=== PATIENT | male | born 1940 | race African-American/Black ===

== ENCOUNTER → 2017-11-15 | Outpatient (CLI) | payer MEDICARE | END | disposition home or self-care (01) | LOC: KCIC MRI 13:32 | DX: R41.3 Other amnesia (principal) | CPT/HCPCS: 70450 ==

== ENCOUNTER 2020-12-06 03:25 | Inpatient (IN) | payer MEDICARE ==
[2020-12-06] VITALS (7 sets, daily range): BP systolic 91–132; BP diastolic 42–72
[~2020-12-06] VITALS: Ht 180.3 cm; Wt 67.9 kg
--- NOTE | 2020-12-06 03:49 | PHYS DOC ---
General Adult EDM: Chief Complaint: ALTERED MENTAL STATUS HPI: HPI: Patient is a 79 year old male with a past medical history of dementia presents for evaluation of altered mental status. Prior to arrival patients found patient to be unresponsive. could not get patient to respond to his name or physical stimuli. On arrival patient with decreased LOC. GCS 11 E(3) V(2) M(6) Patient was protecting his airway. Approximately 30 minutes after arrival patients mental status returned to baseline GCS 15 Patient had no complaints. Denied headache, chest pain, shortness of breath, and abdominal pain. Review of Systems: Review of Systems: Unable to obtain due to medical condition Heart Score: C/O Chest Pain: N/A Risk Factors: Risk Factors: DM, Current or recent (<one month) smoker, HTN, HLP, family history of CAD, obesity. Risk Scores: Score 0 - 3: 2.5% MACE over next 6 weeks - Discharge Home Score 4 - 6: 20.3% MACE over next 6 weeks - Admit for Clinical Observation Score 7 - 10: 72.7% MACE over next 6 weeks - Early Invasive Strategies Physical Exam: PE: General: decreased LOC Skin: warm, dry and intact. HENT: bilateral external ears normal, oropharynx moist, nose normal. Head:: Normocephalic, atraumatic. Neck: Trachea midline. Eyes: No drainage CARDIOVASCULAR: Regular rate and rhythm RESPIRATORY: No respiratory distress Back: Full range of motion. Skin: Warm, dry, no erythema, no rash. GASTROINTESTINAL: Abdomen soft without rebound or guarding. NEUROLOGICAL: Alert No neurological deficits observed Psychiatric: Cooperative. EKG: EKG: Performed at 0333 Rate [address] elevation No ST depression No acute NE [] Radiology/Procedures: Radiology/Procedures: [] Impression: CT head without contrast: Reason for examination: Altered mental status. Comparison is made to previous study dated 11/15/2017. Helical images were obtained through the brain with no contrast administered. Reconstruction was performed in sagittal and coronal planes. Exposure: One or more of the following individualized dose reduction techniques were utilized for this examination: 1. Automated exposure control 2. Adjustment of the mA and/or kV according to patient size 3. Use of iterative reconstruction technique. Ventricular systems are symmetric and not dilated. No midline shift is seen. There is no evidence of intracranial hemorrhage, infarct, mass or edema. No abnormalities of seen at the orbits. The paranasal sinuses and mastoid air cells are clear. No acute abnormality seen in the skull. IMPRESSION: No acute intracranial abnormality evident. Course & Med Decision Making: Course & Med Decision Making Pertinent Labs and Imaging studies reviewed. (See chart for details) []Patient worked up. Labs and CT without acute abnormalities. Patient back to baseline mental status. Dragon Disclaimer: Dragon Disclaimer: This electronic medical record was generated, in whole or in part, using a voice recognition dictation system. Departure Departure Impression: Primary Impression: Altered mental status Disposition: 09 ADMITTED INPATIENT Referrals: NO PCP (PCP) CODY CLARKE DO Dec 06, 2020 03:49
--- NOTE | 2020-12-06 04:13 | EKG ---
[facility] [address] [place] [address] Test Date: 2020-12-06 Test Time: 03:33:34 Pat Name: ANTONIA MATOS Department: Room: Gender: M Surface Room [employer]ician: : [id number] Requested By: CODY CLARKE Order Number: [id number] Reading MD: Measurements Intervals [place] Rate: 102 P: -61 GA: 162 QRS: 76 QRSD: 114 T: -50 QT: 354 QTc: 466 Interpretive Statements SINUS TACHYCARDIA ST & T ABNORMALITY, CONSIDER INFERIOR ISCHEMIA OR LEFT VENTRICULAR STRAIN ABNORMAL ECG RI6.02 No previous ECG available for comparison
[2020-12-06 04:19] LABS: BASO % 1 % (0-3); EOS # 0.1 x10^3/uL (0.0-0.7); EOS % 2 % (0-3); HEMATOCRIT 42.7 % (39.0-53.0); HEMOGLOBIN 14.9 g/dL (13.0-17.5); LYMPH # 2.7 x10^3/uL (1.0-4.8); LYMPH % 33 % (24-48); MEAN CORPUSCULAR HEMOGLOBIN 32 pg (25-35); MEAN CORPUSCULAR HGB CONC 35 g/dL (31-37); MEAN CORPUSCULAR VOLUME 93 fL (79-100); MONO # 0.7 x10^3/uL (0.0-1.1); MONO % 9 % (0-9); NEUT # 4.7 x10^3/uL (1.8-7.7); NEUT % 57 % (31-73); PLATELET COUNT 119 x10^3/uL (140-400); RED CELL DISTRIBUTION WIDTH 13.3 % (11.5-14.5); WHITE BLOOD COUNT 8.2 x10^3/uL (4.0-11.0)
[2020-12-06 04:20] LABS: BILIRUBIN,URINE NEGATIVE (NEG); CLARITY,URINE CLEAR; COLOR,URINE YELLOW; NITRITE,URINE NEGATIVE (NEG); PROTEIN,URINE NEGATIVE (NEG-TRACE); UROBILINOGEN,URINE 0.2 mg/dL (0.2 mg/dL)
[2020-12-06 04:46] LABS: CALCIUM 9.7 mg/dL (8.5-10.1); CREATININE 1.1 mg/dL (0.7-1.3); GFR 78.1; POTASSIUM 4.4 mmol/L (3.5-5.1)
[2020-12-06 04:47] LABS: BACTERIA,URINE MODERATE /HPF (0-FEW)
[2020-12-06 04:52] LABS: ALBUMIN 4.6 g/dL (3.4-5.0); ALBUMIN/GLOBULIN RATIO 1.5 (1.0-1.7); TOTAL BILIRUBIN 1.5 mg/dL (0.2-1.0); TOTAL PROTEIN 7.7 g/dL (6.4-8.2)
--- NOTE | 2020-12-06 05:09 | RAD ---
CT head without contrast: Reason for examination: Altered mental status. Comparison is made to previous study dated 11/15/2017. Helical images were obtained through the brain with no contrast administered. Reconstruction was perf ormed in sagittal and coronal planes. Exposure: One or more of the following individualized dose reduction techniques were utilized for thi s examination: 1. Automated exposure control 2. Adjustment of the mA and/or kV according to patient size 3. Use of iterative reconstruction technique. Ventricular systems are symmetric and not dilated. No midline shift is seen. There is no evidence of intracranial hemorrhage, infarct, mass or edema. No abnormalities of seen at the orbits. The paranasa l sinuses and mastoid air cells are clear. No acute abnormality seen in the skull. IMPRESSION: No acute intracranial abnormality evident. Electronically signed by: Elvia Arora MD (12/06/2020 5:06 AM) [facility]
[2020-12-06] MEDS ORDERED: TAMS0.4C97 PO ×2 (06:08)
[2020-12-06] MEDS ORDERED: SIMV20TA18 PO (06:08)
[2020-12-06] MEDS ORDERED: MEXI150C PO (06:08)
[2020-12-06] MEDS ORDERED: DONE10TA7 PO (06:08)
[2020-12-06] MEDS ORDERED: LISI10TA16 PO (06:08)
[2020-12-06] MEDS ORDERED: ASPI-630 PO (06:08)
[2020-12-06] MEDS ORDERED: LATA2.5D2 OU (06:08)
[2020-12-06] MEDS ORDERED: MULT-690 PO (06:08)
[2020-12-06] MEDS ORDERED: CYAN-9 PO (06:08)
[2020-12-06] MEDS ORDERED: CARV25TA2 PO (06:08)
[2020-12-06] MEDS ORDERED: CETI10TA16 PO (06:08)
--- NOTE | 2020-12-06 07:34 | NUR ---
patient arrived to unit at approx 0650 accompanied by ED RN. patient has not complaints of pain. Resting comfortably on RA. states that patient is back to baseline neurologically. Bed in low locked position, call light in reach, reminded to call for assistance before ambulating, bed alarm set. Will continue to monitor.
[2020-12-06] MEDS ORDERED: CHOL10004 PO (10:05)
--- NOTE | 2020-12-06 10:56 | PDOC ---
Provider Note Date of Service: DATE: 12/06/20 TIME: 10:55 Provider Note Patient examined. Discussed with the patient and his . Clinically does not have UTI. Consult Dr. Poole for neurology evaluation and management. Continue cardiac monitoring. H&P will be dictated later. Justifications for Admission Other Justification JOSE LUIS HOLT MD Dec 06, 2020 10:56
[2020-12-06] MEDS: LISINOPRIL 10 MG TABLET PO SCH ×2 (11:00→21:00)
[2020-12-06] MEDS: CYANOCOBALAMIN (VITAMIN B-12) 1,000 MCG TABLET. PO SCH (11:19)
[2020-12-06] MEDS: MULTIVITAMIN with MINERAL TABLET. PO SCH (11:19)
[2020-12-06] MEDS: ASPIRIN CHEWABLE 81 MG TABLET. PO SCH (11:20)
[2020-12-06] MEDS: CHOLECALCIFEROL (VITAMIN D3) 1,000 UNIT TABLET PO SCH (11:20)
[2020-12-06] MEDS: CETIRIZINE HCL 10 MG TABLET. PO SCH (11:25)
--- NOTE | 2020-12-06 12:54 | NUR ---
Consults to Dr. Avery & Dr. Santos called.
[2020-12-06] MEDS: MEMANTINE 5 MG TABLET. PO SCH ×2 (13:30→21:00)
[2020-12-06] MEDS: CARVEDILOL 12.5 MG TABLET. PO SCH ×2 (13:31→17:00)
--- NOTE | 2020-12-06 13:36 | HP ---
ADMIT DATE: 12/06/2020 HISTORY OF PRESENT ILLNESS: This is a 79 years old male who has a history of dementia with behavioral disturbances and who is on Aricept and who is in the habit of walking and pacing for many hours at night, was talking to his and then subsequently went back to the chair last night around 1:00 a.m. and when went back to see him, he was not responsive. He was sitting in the chair, but did not respond to any verbal or physical stimuli. called the ambulance and the patient did not respond even to the medical staff. He was brought to the Emergency Room. In the Emergency Room, he remained unresponsive for about 30 minutes. Subsequently, the patient became responsive and went back to his baseline status. The patient is confused and unable to provide any information. He has severe dementia. He did not have any dizziness, seizures, palpitations, cough, congestion, dyspnea, cyanosis, any focal weakness per the patient's . In the Emergency Room, a CT scan of head did not show any acute intracranial abnormalities. Because of the change in mental status and possible syncope, the patient was admitted for further evaluation and management. SYSTEMS REVIEW: As noted in the history of present illness. The patient is unable to provide any information. The patient denies any abdominal pain, nausea, vomiting, cold, cough, congestion, fever, chills, any recent falls or head trauma. PAST MEDICAL HISTORY: The patient has a history of coronary artery disease with inferior posterior myocardial infarction, moderate atherosclerosis 50-60% stenosis in LAD and left circumflex. He had RCA with chronic total occlusion, status post PCI with LINSEY on 09/16/2003, left ventricular dysfunction due to ischemic cardiomyopathy, ejection fraction 35% with both systolic and diastolic heart failure. The patient had an ICD placement on 12/11/2004 and on 03/04/2015, there was an ICD generator change. History of frequent PVCs, hypertension, dyslipidemia, dementia with behavioral disturbances, vitamin D deficiency, severe lumbar spondylosis, right shoulder osteoarthritis, chronic osteoarthritis of hands, moderate mitral regurgitation with mild tricuspid regurgitation, cardiac arrhythmia, hyperlipidemia, glaucoma, degenerative joint disease of the right hip, carotid artery disease, left internal carotid stenosis less than 50%, history of cardiac pacemaker. The patient has AICD in the right chest. The patient has a history of B12 deficiency. FAMILY HISTORY: Brother had premature coronary artery disease. Father had diabetes mellitus type 2, renal failure, and glaucoma. Mother had coronary artery disease. Sister has asthma. SOCIAL HISTORY: No history of smoking, alcoholism, or drug abuse. The patient lives with his . MEDICATIONS: Carvedilol 25 mg p.o. twice daily, cetirizine 10 mg half tablet daily at bedtime, tamsulosin 0.4 mg daily, simvastatin 20 mg daily, lisinopril 20 mg daily, Namenda 5 mg twice daily, Aricept 10 mg 2 tablets daily in the evening, Flonase 2 sprays by intranasal route every day in each nostril, vitamin B12 5000 mcg sublingually once a day, mexiletine 150 mg every 8 hours with food, aspirin 81 mg p.o. daily, vitamin D3 once a day. ALLERGIES: None known any. PHYSICAL EXAMINATION: VITAL SIGNS: Temperature 98.1, pulse 59 per minute, respirations 16 per minute, blood pressure is 102/51 mmHg. On admission, temperature was 97.1, respirations normal, pulse was 78 per minute, blood pressure 141/93 mmHg. GENERAL: The patient is an elderly -[place] male who is alert, confused, more talkative this morning than usual and not in acute distress. He is unable to provide any significant information. SKIN: Warm and dry. There is no cyanosis. EYES: Pupils reacting to light. Conjunctivae pale. Sclerae white. HENT: Unremarkable. NECK: Supple. JVP normal. No thyromegaly. Trachea midline. LUNGS: Clear. CARDIOVASCULAR SYSTEM: S1, S2 regular. The patient also has an ICD placed in the right upper chest. ABDOMEN: Soft, nontender, no guarding, no rigidity. Bowel sounds present. EXTREMITIES: No edema, no cyanosis, no calf tenderness. CENTRAL NERVOUS SYSTEM: The patient is very confused. Moves all his extremities. No focal neurovascular deficit noted. He is back to his baseline status. LABORATORY AND DIAGNOSTIC DATA: Laboratory findings: WBC count 8.2, hemoglobin 14.9, platelet count is 119,000. Sodium 142, potassium 4.4, BUN 22, creatinine 1.1, glucose 108, calcium 9.7, total bilirubin 1.5, troponin less than 0.017, total protein 7.7, albumin 4.6. Urinalysis: Moderate bacteria, 5-10 wbc's, nitrite negative, blood negative. CT scan of the head did not show any acute intracranial changes. IMPRESSION: 1. Syncope. 2. Change in mental status. 3. Dementia with behavioral disturbances. 4. Hypertension. 5. Coronary artery disease with status post stent in the right coronary artery. 6. Severe lumbar spondylosis. 7. Right shoulder osteoarthritis. 8. Osteoarthritis of hands and right hip. 9. History of premature ventricular complexes. 10. Congestive heart failure with ejection fraction of 35%, both systolic and diastolic. 11. Carotid artery stenosis, less than 50% on the left side. 12. Hyperlipidemia. 13. Glaucoma. 14. Thrombocytopenia. 15. B12 deficiency. 16. History of inferior posterior myocardial infarction. PLAN: Consult Dr. Poole for neurology evaluation and management. Consult Dr. Avery for cardiology evaluation and management. Continue cardiac monitoring. Condition, treatment options extensively discussed with the patient and his . Clinically, the patient does not have urinary tract infection, he is not symptomatic but we will wait for the urine culture, I will not start him on any antibiotics. For details, please refer to the orders. Monitor for arrhythmia and seizures. RADHA/ORL DR: RADHA/nica TID: [id number]
[2020-12-06] MEDS: MEXILETINE 150 MG PO SCH ×2 (14:24→22:00)
[2020-12-06] MEDS: TAMSULOSIN 0.4 MG CAP.ER.24H. PO SCH (17:17)
[2020-12-06] MEDS: ALPRAZolam 0.25 MG TABLET PO PRN (17:17)
--- NOTE | 2020-12-06 20:37 | PDOC2 ---
CONSULT Date of Consult Date of Consult DATE: 12/06/20 TIME: 20:35 Reason for Consult Reason for Consult: AMS Identification/Chief Complaint Chief Complaint AMS History of Present Illness Reason for Visit: This patient is 79-year-old man with past medical history of multiple medical problems with history of dementia, episodes of agitation. Patient was not feeling well for the last [id number] days prior to presentation. Patient was having more confusion. Patient had a syncope episode. Patient had improvement in symptoms. Patient currently denies any complaint of headache nausea or vomiting chest pain shortness of breath. Patient denied any focal extremity weakness. Patient had a CT scan done brain did not show any evidence of acute intracranial etiology changes noted for chronic small vessel ischemic disease, atrophy noted Current Problem List Problem List Problems Medical Problems: (1) Altered mental status Status: Acute Current Medications Current Medications Current Medications Aspirin (Aspirin Chewable) 81 mg DAILY PO Last administered on 12/06/20at 11:20; Start 12/06/20 at 11:00 Cetirizine HCl (ZyrTEC) 10 mg DAILY PO Last administered on 12/06/20at 11:25; Start 12/06/20 at 11:00 Donepezil HCl (Aricept) 10 mg HS PO ; Start 12/06/20 at 21:00; Stop 12/06/20 at 12:10; Status DC Latanoprost (Xalatan) 1 drop QHS OU ; Start 12/06/20 at 21:00 Lisinopril (Prinivil) 10 mg BID PO ; Start 12/06/20 at 11:00 Simvastatin (Zocor) 20 mg HS PO ; Start 12/06/20 at 21:00 Tamsulosin HCl (Flomax) 0.4 mg DAILYWSUP PO Last administered on 12/06/20at 17:17; Start 12/06/20 at 17:00 Carvedilol (Coreg) 25 mg BIDWMEALS PO Last administered on 12/06/20at 13:31; Start 12/06/20 at 12:00 Cyanocobalamin (Vitamin B-12) 1,000 mcg DAILY PO Last administered on 12/06/20at 11:19; Start 12/06/20 at 11:00 Non-Formulary Medication (Mexiletine Hcl ) 150 mg Q8HRS PO Last administered on 12/06/20at 14:24; Start 12/06/20 at 14:00 Multivitamins (Thera M Plus) 1 tab DAILY PO Last administered on 12/06/20at 11:19; Start 12/06/20 at 11:00 Vitamin D (Vitamin D3) 2,000 unit DAILY PO ; Start 12/07/20 at 09:00; Stop 12/06/20 at 10:07; Status DC Vitamin D (Vitamin D3) 2,000 unit DAILY PO Last administered on 12/06/20at 11:20; Start 12/06/20 at 10:15 Donepezil HCl (Aricept) 20 mg HS PO ; Start 12/06/20 at 21:00 Memantine (Namenda) 5 mg BID PO Last administered on 12/06/20at 13:30; Start 12/06/20 at 13:00 Alprazolam (Xanax) 0.25 mg PRN Q8HRS PRN PO ANXIETY / AGITATION Last administered on 12/06/20at 17:17; Start 12/06/20 at 16:30 Active Scripts Active Reported Vitamin D3 (Vitamin D) 25 Mcg Tablet 2,000 Intlu PO DAILY 1,000 UNITS = 25 MCG Cetirizine Hcl 10 Mg Tablet 10 Mg PO DAILY Lisinopril 10 Mg Tablet 10 Mg PO BID Flomax (Tamsulosin Hcl) 0.4 Mg Cap.er.24h 0.4 Mg PO DAILYWSUP Flomax (Tamsulosin Hcl) 0.4 Mg Cap.er.24h 0.4 Mg PO DAILY Mexiletine Hcl 150 Mg Capsule 150 Mg PO TID Xalatan (Latanoprost) 2.5 Ml Drops 1 Drop OU QHS Carvedilol 25 Mg Tablet 25 Mg PO BIDWMEALS Donepezil Hcl 10 Mg Tablet 10 Mg PO HS Simvastatin 20 Mg Tablet 20 Mg PO HS Vitamin B-12 (Cyanocobalamin (Vitamin B-12)) 1,000 Mcg Capsule 1 Cap PO DAILY 30 Days Centrum Silver Men Tablet (Multivit-Min/FA/Lycopen/Lutein) 1 Each Tablet 1 Each PO DAILY Aspirin 81 Mg Tab.chew 81 Mg PO DAILY Allergies Allergies: Coded Allergies: No Known Drug Allergies (Unverified , 12/06/20) Physical Exam Physical Exam General no acute distress. HEENT: Normocephalic and atraumatic. NECK: Supple without bruit Respiratory: Clear to auscultation bilaterally Heart: Regular rate and rhythm, S1S2 normal NEUROLOGIC: Mental status Alert Able to tell his name. No meningeal signs. Cranial nerve equally reactive pupils, and intact extraocular movements. No facial asymmetry. Palate elevates and tongue protrudes in midline. Reflexes are 1-2 with flexor plantar responses. Coordination no dysmetria Strength able to move all exts equally. Sensory exam is intact for light touch and pinprick. Gait in bed. A 10-point review of systems was obtained. Other than the history of present illness the remainder of the review of systems is negative. Vitals VITALS Vital Signs Date Time Temp Pulse Resp B/P (MAP) Pulse Ox O2 Delivery O2 Flow Rate FiO2 12/06/20 19:15 97.9 68 18 91/42 (58) 98 Room Air 97.9 Labs Labs Laboratory Tests Test 12/06/20 03:50 12/06/20 03:54 12/06/20 04:00 Urine Collection Type U cath Urine Color Yellow Urine Clarity Clear Urine pH 6.0 (<5.0-8.0) Urine Specific [place] >=1.030 (1.000-1.030) Urine Protein Negative mg/dL (NEG-TRACE) Urine Glucose (UA) Negative mg/dL (NEG) Urine Ketones (Stick) Negative mg/dL (NEG) Urine Blood Negative (NEG) Urine Nitrite Negative (NEG) Urine Bilirubin Negative (NEG) Urine Urobilinogen Dipstick 0.2 mg/dL (0.2 mg/dL) Urine Leukocyte Esterase Trace (NEG) Urine RBC 1-2 /HPF (0-2) Urine WBC 5-10 /HPF (0-4) Urine Squamous Epithelial Cells Mod /LPF Urine Bacteria Moderate /HPF (0-FEW) Urine Mucus Mod /LPF Glucose (Fingerstick) 96 mg/dL (70-99) White Blood Count 8.2 x10^3/uL (4.0-11.0) Red Blood Count 4.60 x10^6/uL (4.30-5.70) Hemoglobin 14.9 g/dL (13.0-17.5) Hematocrit 42.7 % (39.0-53.0) Mean Corpuscular Volume 93 fL (79-100) Mean Corpuscular Hemoglobin 32 pg (25-35) Mean Corpuscular Hemoglobin Concent 35 g/dL (31-37) Red Cell Distribution Width 13.3 % (11.5-14.5) Platelet Count 119 x10^3/uL (140-400) Neutrophils (%) (Auto) 57 % (31-73) Lymphocytes (%) (Auto) 33 % (24-48) Monocytes (%) (Auto) 9 % (0-9) Eosinophils (%) (Auto) 2 % (0-3) Basophils (%) (Auto) 1 % (0-3) Neutrophils # (Auto) 4.7 x10^3/uL (1.8-7.7) Lymphocytes # (Auto) 2.7 x10^3/uL (1.0-4.8) Monocytes # (Auto) 0.7 x10^3/uL (0.0-1.1) Eosinophils # (Auto) 0.1 x10^3/uL (0.0-0.7) Basophils # (Auto) 0.0 x10^3/uL (0.0-0.2) Sodium Level 142 mmol/L (136-145) Potassium Level 4.4 mmol/L (3.5-5.1) Chloride Level 104 mmol/L (98-107) Carbon Dioxide Level 25 mmol/L (21-32) Anion Gap 13 (6-14) Blood Urea Nitrogen 22 mg/dL (8-26) Creatinine 1.1 mg/dL (0.7-1.3) Estimated GFR (Cockcroft-Gault) 78.1 BUN/Creatinine Ratio 20 (6-20) Glucose Level 108 mg/dL (70-99) Calcium Level 9.7 mg/dL (8.5-10.1) Total Bilirubin 1.5 mg/dL (0.2-1.0) Aspartate Amino Transf (AST/SGOT) 24 U/L (15-37) Alanine Aminotransferase (ALT/SGPT) 29 U/L (16-63) Alkaline Phosphatase 70 U/L (46-116) Troponin I Quantitative < 0.017 ng/mL (0.000-0.055) Total Protein 7.7 g/dL (6.4-8.2) Albumin 4.6 g/dL (3.4-5.0) Albumin/Globulin Ratio 1.5 (1.0-1.7) Laboratory Tests Test 12/06/20 03:50 12/06/20 03:54 12/06/20 04:00 Urine Collection Type U cath Urine Color Yellow Urine Clarity Clear Urine pH 6.0 (<5.0-8.0) Urine Specific [place] >=1.030 (1.000-1.030) Urine Protein Negative mg/dL (NEG-TRACE) Urine Glucose (UA) Negative mg/dL (NEG) Urine Ketones (Stick) Negative mg/dL (NEG) Urine Blood Negative (NEG) Urine Nitrite Negative (NEG) Urine Bilirubin Negative (NEG) Urine Urobilinogen Dipstick 0.2 mg/dL (0.2 mg/dL) Urine Leukocyte Esterase Trace (NEG) Urine RBC 1-2 /HPF (0-2) Urine WBC 5-10 /HPF (0-4) Urine Squamous Epithelial Cells Mod /LPF Urine Bacteria Moderate /HPF (0-FEW) Urine Mucus Mod /LPF Glucose (Fingerstick) 96 mg/dL (70-99) White Blood Count 8.2 x10^3/uL (4.0-11.0) Red Blood Count 4.60 x10^6/uL (4.30-5.70) Hemoglobin 14.9 g/dL (13.0-17.5) Hematocrit 42.7 % (39.0-53.0) Mean Corpuscular Volume 93 fL (79-100) Mean Corpuscular Hemoglobin 32 pg (25-35) Mean Corpuscular Hemoglobin Concent 35 g/dL (31-37) Red Cell Distribution Width 13.3 % (11.5-14.5) Platelet Count 119 x10^3/uL (140-400) Neutrophils (%) (Auto) 57 % (31-73) Lymphocytes (%) (Auto) 33 % (24-48) Monocytes (%) (Auto) 9 % (0-9) Eosinophils (%) (Auto) 2 % (0-3) Basophils (%) (Auto) 1 % (0-3) Neutrophils # (Auto) 4.7 x10^3/uL (1.8-7.7) Lymphocytes # (Auto) 2.7 x10^3/uL (1.0-4.8) Monocytes # (Auto) 0.7 x10^3/uL (0.0-1.1) Eosinophils # (Auto) 0.1 x10^3/uL (0.0-0.7) Basophils # (Auto) 0.0 x10^3/uL (0.0-0.2) Sodium Level 142 mmol/L (136-145) Potassium Level 4.4 mmol/L (3.5-5.1) Chloride Level 104 mmol/L (98-107) Carbon Dioxide Level 25 mmol/L (21-32) Anion Gap 13 (6-14) Blood Urea Nitrogen 22 mg/dL (8-26) Creatinine 1.1 mg/dL (0.7-1.3) Estimated GFR (Cockcroft-Gault) 78.1 BUN/Creatinine Ratio 20 (6-20) Glucose Level 108 mg/dL (70-99) Calcium Level 9.7 mg/dL (8.5-10.1) Total Bilirubin 1.5 mg/dL (0.2-1.0) Aspartate Amino Transf (AST/SGOT) 24 U/L (15-37) Alanine Aminotransferase (ALT/SGPT) 29 U/L (16-63) Alkaline Phosphatase 70 U/L (46-116) Troponin I Quantitative < 0.017 ng/mL (0.000-0.055) Total Protein 7.7 g/dL (6.4-8.2) Albumin 4.6 g/dL (3.4-5.0) Albumin/Globulin Ratio 1.5 (1.0-1.7) Assessment/Plan Assessment/Plan This patient is 79-year-old man with past medical history of multiple medical problems with history of dementia, episodes of agitation. Patient was not feeling well for the last [id number]-pkukj days prior to presentation. Patient was having more confusion. Patient had a syncope episode. Patient had improvement in symptoms. Patient currently denies any complaint of headache nausea or vo miting chest pain shortness of breath. Patient denied any focal extremity weakness. Patient had a CT scan done brain did not show any evidence of acute intracranial etiology changes noted for chronic small vessel ischemic disease, atrophy noted With episode of syncope. Check for orthostatic hypotension with encephalopathy with underlying dementia check for infectious, metabolic etiology. Patient had a CT scan done brain did not show any evidence of acute intracranial etiology changes noted for chronic small vessel ischemic disease, atrophy noted MRI of brain cannot be done due to current medical condition. On aspirin for stroke prevention. Check carotid Doppler. Physical therapy. Continue medical management. Plan discussed at length Thank you for allowing me to take part in this patient's care. Please not hesitate to contact me with questions. Transcribed using dictation device. The dictation could contain irregularities inherent in the voice to text conversion software, which may not be detected during the document review process. Please contact our office in case of any confusion or for any clarification, as needed. JANIS MILLER MD Dec 06, 2020 20:37
[2020-12-06] MEDS ORDERED: LATANOPROST 0.005% OPHTH SOLUTION 2.5ML BOTTLE. OU SCH (21:00)
[2020-12-06] MEDS ORDERED: SIMVASTATIN 20 MG TABLET PO SCH (21:00)
[2020-12-06] MEDS ORDERED: DONEPEZIL HCL 10 MG TABLET. PO SCH ×2 (21:00)
[2020-12-07] MEDS: MEXILETINE 150 MG PO SCH ×2 (03:04→14:54)
[2020-12-07] MEDS: ALPRAZolam 0.25 MG TABLET PO PRN (03:09)
[2020-12-07 03:10] VITALS: BP 134/70
[2020-12-07 07:00] VITALS: BP 141/77
[2020-12-07 08:03] LABS: CALCIUM 9.4 mg/dL (8.5-10.1); GFR 87.2; MAGNESIUM 2.4 mg/dL (1.8-2.4); POTASSIUM 3.9 mmol/L (3.5-5.1)
[2020-12-07] MEDS ORDERED: CHOLECALCIFEROL (VITAMIN D3) 1,000 UNIT TABLET PO SCH (09:00)
[2020-12-07] MEDS: CHOLECALCIFEROL (VITAMIN D3) 1,000 UNIT TABLET PO SCH (09:27)
[2020-12-07] MEDS: MEMANTINE 5 MG TABLET. PO SCH (09:28)
[2020-12-07] MEDS: CARVEDILOL 12.5 MG TABLET. PO SCH ×2 (09:28→17:41)
[2020-12-07] MEDS: ASPIRIN CHEWABLE 81 MG TABLET. PO SCH (09:28)
[2020-12-07] MEDS: CYANOCOBALAMIN (VITAMIN B-12) 1,000 MCG TABLET. PO SCH (09:28)
[2020-12-07] MEDS: MULTIVITAMIN with MINERAL TABLET. PO SCH (09:28)
[2020-12-07] MEDS: LISINOPRIL 10 MG TABLET PO SCH (09:28)
[2020-12-07] MEDS: CETIRIZINE HCL 10 MG TABLET. PO SCH (09:28)
--- NOTE | 2020-12-07 09:31 | PDOC3 ---
IM DISCHARGE SUMMARY Date of Admission Date of Admission Date of Admission: Dec 06, 2020 at 05:21 Date of Discharge Date of Discharge December 07, 2020 Primary Diagnosis Primary Diagnosis 1. Syncope. 2. Change in mental status. 3. Dementia with behavioral disturbances. 4. Hypertension. 5. Coronary artery disease with status post stent in the right coronary artery. 6. Severe lumbar spondylosis. 7. Right shoulder osteoarthritis. 8. Osteoarthritis of hands and right hip. 9. History of premature ventricular complexes. 10. Congestive heart failure with ejection fraction of 35%, both systolic and diastolic. 11. Carotid artery stenosis, less than 50% on the left side. 12. Hyperlipidemia. 13. Glaucoma. 14. Thrombocytopenia. 15. B12 deficiency. 16. History of inferior posterior myocardial infarction. Consults Consults Ayaan Avery MD; Rohan Santos MD Labs Labs Laboratory Tests Test 12/07/20 06:40 Sodium Level 143 mmol/L (136-145) Potassium Level 3.9 mmol/L (3.5-5.1) Chloride Level 105 mmol/L (98-107) Carbon Dioxide Level 31 mmol/L (21-32) Anion Gap 7 (6-14) Blood Urea Nitrogen 19 mg/dL (8-26) Creatinine 1.0 mg/dL (0.7-1.3) Estimated GFR (Cockcroft-Gault) 87.2 Glucose Level 99 mg/dL (70-99) Calcium Level 9.4 mg/dL (8.5-10.1) Magnesium Level 2.4 mg/dL (1.8-2.4) Laboratory Tests 12/07/20 06:40 Brief hospital course Brief hospital course This is a 79 years old male who has a history of dementia with behavioral disturbances and who is on Aricept and who is in the habit of walking and pacing for many hours at night, was talking to his and then subsequently went back to the chair last night around 1:00 a.m. and when went back to see him, he was not responsive. He was sitting in the chair, but did not respond to any verbal or physical stimuli. called the ambulance and the patient did not respond even to the medical staff. He was brought to the Emergency Room. In the Emergency Room, he remained unresponsive for about 30 minutes. Subsequently, the patient became responsive and went back to his baseline status. The patient is confused and unable to provide any information. He has severe dementia. He did not have any dizziness, seizures, palpitations, cough, congestion, dyspnea, cyanosis, any focal weakness per the patient's . In the Emergency Room, a CT scan of head did not show any acute intracranial abnormalities. Because of the change in mental status and possible syncope, the patient was admitted for further evaluation and management. For more details regarding the past history, family history, social history, surgical history and other details, please refer to the H&P. Consult Dr. Poole for neurology evaluation and management. Consult Dr. Avery for cardiology evaluation and management. Continue cardiac monitoring. Condition, treatment options extensively discussed with the patient and his . Clinically, the patient does not have urinary tract infection, he is not symptomatic but we will wait for the urine culture, I will not start him on any antibiotics. For details, please refer to the orders. Monitor for arrhythmia and seizures. Bilateral carotid sonogram has been ordered and the results are pending. I would recommend AICD/pacemaker interrogation. Patient has not been sleeping all night at home and here in the hospital. Order physical therapy Occupational Therapy evaluation and treatment. Start mirtazapine 7.5 mg daily at bedtime Condition and treatment and options including hospice extensively discussed with the patient's son at bedside. Family would like to take him home and not place him in a custodial. May discharge him later this afternoon home with home health services if okay with the specialists and if other tests are stable. Long-term as well as short-term prognosis of this patient is extremely poor due to his multiple medical problems. Medications Medications reviewed and reconciled for discharge. Home Meds Reported Medications Cholecalciferol (Vitamin D3) (Vitamin D3 ) 25 Mcg Tablet, 2000 INTLU PO DAILY for SUPPLEMENT, TAB 1,000 UNITS = 25 MCG 12/06/20 Cetirizine Hcl (CETIRIZINE HCL) 10 Mg Tablet, 10 MG PO DAILY for , TAB 12/06/20 Lisinopril (LISINOPRIL) 10 Mg Tablet, 10 MG PO BID for FOR HYPERTENSION, #30 TAB 0 Refills 12/06/20 Tamsulosin Hcl (FLOMAX) 0.4 Mg Cap.er.24h, 0.4 MG PO DAILYWSUP for , TAB 12/06/20 Tamsulosin Hcl (FLOMAX) 0.4 Mg Cap.er.24h, 0.4 MG PO DAILY for , TAB 12/06/20 Mexiletine Hcl (MEXILETINE HCL) 150 Mg Capsule, 150 MG PO TID for , CAP 12/06/20 Latanoprost (XALATAN) 2.5 Ml Drops, 1 DROP OU QHS for GLAUCOMA, ML 12/06/20 Carvedilol (CARVEDILOL) 25 Mg Tablet, 25 MG PO BIDWMEALS for CARDIAC, TAB 12/06/20 Donepezil Hcl (DONEPEZIL HCL) 10 Mg Tablet, 10 MG PO HS for , TAB 12/06/20 Simvastatin (SIMVASTATIN) 20 Mg Tablet, 20 MG PO HS for FOR CHOLESTEROL, #30 TAB 0 Refills 12/06/20 Cyanocobalamin (Vitamin B-12) (Vitamin B-12) 1,000 Mcg Capsule, 1 CAP PO DAILY for for 30 Days, #30 CAP 0 Refills 12/06/20 Multivit-Min/FA/Lycopen/Lutein (Centrum Silver Men Tablet) 1 Each Tablet, 1 EACH PO DAILY for , TAB 12/06/20 Aspirin (ASPIRIN) 81 Mg Tab.chew, 81 MG PO DAILY for , TAB.CHEW 12/06/20 Allergy Allergies Coded Allergies Type Severity Reaction Last Updated Verified No Known Drug Allergies 12/06/20 No Follow up in 5 days. DISPOSITION: Home health services Comments Discharge Management - 35 minutes. For other details please refer to discharge instructions Justicifation of Admission Dx: Justifications for Admission: Justification of Admission Dx: Yes JOSE LUIS HOLT MD Dec 07, 2020 09:31
[2020-12-07] MEDS ORDERED: MIRT7.5T8 PO (09:34)
[2020-12-07] MEDS ORDERED: MEMA5TAB42 PO (09:34)
[2020-12-07] MEDS ORDERED: DONE10TA61 PO (09:34)
--- NOTE | 2020-12-07 09:38 | SNU/HH DC ---
DISCHARGE WITH HOME HEALTH DISCHARGE INFORMATION: Final Diagnosis: Problems Medical Problems: (1) Altered mental status Status: Acute Condition on Discharge: Stable HOME HEALTH: Face to Face: I certify this patient is under my care and that I, or a nurse practitioner or physician's assistant professor working with me, had a face to face encounter that meets the physician face to face encounter requirements with this patient on December 07, 2020. Medical Complications: Dementia RN For Eval/Treatment: Yes Physical Therapy For: Evalulation/Treatment Occupational Therapy For: Evaluation/Treatment Pt Meets Homebound Status: Poor coordination w/ amb. POST DISCHARGE ORDERS: Activity Instructions for Disc: Activity as tolerated DIET AFTER DISCHARGE: Regular FOLLOW-UP: PCP to follow Home Health: Yes Follow up with: Dr. Jose Luis Holt in 5 days. CERTIFICATION STATEMENT: Certification Statement: Certification Statement: Based on the above finding, I certify that this patient is confined to the home and needs intermittent chcf care, physical therapy and/or speech therapy, or continues to need occupational therapy.~ This patient is under my care, and I have initiated the establishment of the plan of care.~ This patient will be followed by myself or a community physician who will periodically review the plan of care. Home Meds Active Scripts Memantine HCl (Memantine HCl) 5 Mg Tablet, 5 MG PO BID for dementia for 30 Days, #60 TAB 3 Refills Prov:JOSE LUIS HOLT MD 12/07/20 Mirtazapine (MIRTAZAPINE) 7.5 Mg Tablet, 7.5 MG PO QHS for anxiety for 30 Days, #30 TAB 3 Refills Prov:JOSE LUIS HOLT MD 12/07/20 Donepezil Hcl (ARICEPT) 10 Mg Tablet, 20 MG PO HS for dementia for 30 Days, #60 TAB Prov:JOSE LUIS HOLT MD 12/07/20 Reported Medications Cholecalciferol (Vitamin D3) (Vitamin D3 ) 25 Mcg Tablet, 2000 INTLU PO DAILY for SUPPLEMENT, TAB 1,000 UNITS = 25 MCG 12/06/20 Cetirizine Hcl (CETIRIZINE HCL) 10 Mg Tablet, 10 MG PO DAILY for , TAB 12/06/20 Lisinopril (LISINOPRIL) 10 Mg Tablet, 10 MG PO BID for FOR HYPERTENSION, #30 TAB 0 Refills 12/06/20 Tamsulosin Hcl (FLOMAX) 0.4 Mg Cap.er.24h, 0.4 MG PO DAILYWSUP for , TAB 12/06/20 Mexiletine Hcl (MEXILETINE HCL) 150 Mg Capsule, 150 MG PO TID for , CAP 12/06/20 Latanoprost (XALATAN) 2.5 Ml Drops, 1 DROP OU QHS for GLAUCOMA, ML 12/06/20 Carvedilol (CARVEDILOL) 25 Mg Tablet, 25 MG PO BIDWMEALS for CARDIAC, TAB 12/06/20 Simvastatin (SIMVASTATIN) 20 Mg Tablet, 20 MG PO HS for FOR CHOLESTEROL, #30 TAB 0 Refills 12/06/20 Cyanocobalamin (Vitamin B-12) (Vitamin B-12) 1,000 Mcg Capsule, 1 CAP PO DAILY for for 30 Days, #30 CAP 0 Refills 12/06/20 Multivit-Min/FA/Lycopen/Lutein (Centrum Silver Men Tablet) 1 Each Tablet, 1 EACH PO DAILY for , TAB 12/06/20 Aspirin (ASPIRIN) 81 Mg Tab.chew, 81 MG PO DAILY for , TAB.CHEW 12/06/20 Discontinued Reported Medications Tamsulosin Hcl (FLOMAX) 0.4 Mg Cap.er.24h, 0.4 MG PO DAILY for , TAB 12/06/20 Donepezil Hcl (DONEPEZIL HCL) 10 Mg Tablet, 10 MG PO HS for , TAB 12/06/20 JOSE LUIS HOLT MD Dec 07, 2020 09:38
--- NOTE | 2020-12-07 10:36 | PDOC2 ---
CONSULT Date of Consult Date of Consult DATE: 12/07/20 TIME: 10:36 Reason for Consult Reason for Consult: Possible syncope Referring Physician Referring Physician: Dr. Knapp Identification/Chief Complaint Chief Complaint Unresponsiveness Source Source: Caregiver, Chart review History of Present Illness Reason for Visit: 79 y/o male with history of severe dementia, CAD, ischemic cardiomyopathy s/p ICD implantation was apparently found by unresponsive in his chair last night. He remained unresponsive till 30 minutes after presentation to ED and w ent back to baseline mental status. It is unclear as to whether patient actually had syncope. He is not a very good historian but per son who was in the room he did not complain of chest pain or shortness of breath. Past Medical History Past Medical History CAD s/p PCI/stent to RCA 08/2003 Chronic systolic HF with EF 35% Ischemic cardiomyopathy s/p AICD implantation 2004 with gen change 2014 HTN HLP Severe dementia Glaucoma DJD Carotid artery stenosis Past Surgical History Past Surgical History AICD implantation 2004 with gen change 2014 Family History Family History not contributory Social History Social History Patient is a non smoker and non drinker Current Problem List Problem List Problems Medical Problems: (1) Altered mental status Status: Acute Current Medications Current Medications Current Medications Aspirin (Aspirin Chewable) 81 mg DAILY PO Last administered on 12/07/20at 09:28; Start 12/06/20 at 11:00 Cetirizine HCl (ZyrTEC) 10 mg DAILY PO Last administered on 12/07/20at 09:28; Start 12/06/20 at 11:00 Donepezil HCl (Aricept) 10 mg HS PO ; Start 12/06/20 at 21:00; Stop 12/06/20 at 12:10; Status DC Latanoprost (Xalatan) 1 drop QHS OU ; Start 12/06/20 at 21:00 Lisinopril (Prinivil) 10 mg BID PO Last administered on 12/07/20at 09:28; Start 12/06/20 at 11:00 Simvastatin (Zocor) 20 mg HS PO ; Start 12/06/20 at 21:00 Tamsulosin HCl (Flomax) 0.4 mg DAILYWSUP PO Last administered on 12/06/20at 17:17; Start 12/06/20 at 17:00 Carvedilol (Coreg) 25 mg BIDWMEALS PO Last administered on 12/07/20at 09:28; Start 12/06/20 at 12:00 Cyanocobalamin (Vitamin B-12) 1,000 mcg DAILY PO Last administered on 12/07/20at 09:28; Start 12/06/20 at 11:00 Non-Formulary Medication (Mexiletine Hcl ) 150 mg Q8HRS PO Last administered on 12/07/20at 03:04; Start 12/06/20 at 14:00 Multivitamins (Thera M Plus) 1 tab DAILY PO Last administered on 12/07/20at 09:28; Start 12/06/20 at 11:00 Vitamin D (Vitamin D3) 2,000 unit DAILY PO ; Start 12/07/20 at 09:00; Stop 12/06/20 at 10:07; Status DC Vitamin D (Vitamin D3) 2,000 unit DAILY PO Last administered on 12/07/20at 09:27; Start 12/06/20 at 10:15 Donepezil HCl (Aricept) 20 mg HS PO ; Start 12/06/20 at 21:00 Memantine (Namenda) 5 mg BID PO Last administered on 12/07/20at 09:28; Start 12/06/20 at 13:00 Alprazolam (Xanax) 0.25 mg PRN Q8HRS PRN PO ANXIETY / AGITATION Last administered on 12/07/20at 03:09; Start 12/06/20 at 16:30 Mirtazapine (Remeron) 7.5 mg QHS PO ; Start 12/07/20 at 21:00 Active Scripts Active Memantine HCl 5 Mg Tablet 5 Mg PO BID 30 Days Mirtazapine 7.5 Mg Tablet 7.5 Mg PO QHS 30 Days Aricept (Donepezil Hcl) 10 Mg Tablet 20 Mg PO HS 30 Days Reported Vitamin D3 (Vitamin D) 25 Mcg Tablet 2,000 Intlu PO DAILY 1,000 UNITS = 25 MCG Cetirizine Hcl 10 Mg Tablet 10 Mg PO DAILY Lisinopril 10 Mg Tablet 10 Mg PO BID Flomax (Tamsulosin Hcl) 0.4 Mg Cap.er.24h 0.4 Mg PO DAILYWSUP Mexiletine Hcl 150 Mg Capsule 150 Mg PO TID Xalatan (Latanoprost) 2.5 Ml Drops 1 Drop OU QHS Carvedilol 25 Mg Tablet 25 Mg PO BIDWMEALS Simvastatin 20 Mg Tablet 20 Mg PO HS Vitamin B-12 (Cyanocobalamin (Vitamin B-12)) 1,000 Mcg Capsule 1 Cap PO DAILY 30 Days Centrum Silver Men Tablet (Multivit-Min/FA/Lycopen/Lutein) 1 Each Tablet 1 Each PO DAILY Aspirin 81 Mg Tab.chew 81 Mg PO DAILY Allergies Allergies: Coded Allergies: No Known Drug Allergies (Unverified , 12/06/20) ROS General: YES: Fatigue PSYCHOLOGICAL ROS: YES: Behavioral Disorder; No: Hallucinations Eyes: No Loss of vision HEENT: No: Epistaxis ENDOCRINE: YES: Mood Swings Respiratory: No: Hemoptysis Cardiovascular: No Chest Pain Gastrointestinal: No Vomiting Genitourinary: No Hematuria Neurological: No Seizures Skin: No Rash Physical Exam General: No acute distress HEENT: Atraumatic Lungs: Clear to auscultation Heart: Regular rate Abdomen: Soft Extremities: No edema Vitals VITALS Vital Signs Date Time Temp Pulse Resp B/P (MAP) Pulse Ox O2 Delivery O2 Flow Rate FiO2 12/07/20 09:28 74 141/77 12/07/20 08:00 Room Air 12/07/20 07:00 98.5 20 96 98.5 Labs Labs Laboratory Tests Test 12/06/20 03:50 12/06/20 03:54 12/06/20 04:00 12/07/20 06:40 Urine Collection Type U cath Urine Color Yellow Urine Clarity Clear Urine pH 6.0 (<5.0-8.0) Urine Specific [place] >=1.030 (1.000-1.030) Urine Protein Negative mg/dL (NEG-TRACE) Urine Glucose (UA) Negative mg/dL (NEG) Urine Ketones (Stick) Negative mg/dL (NEG) Urine Blood Negative (NEG) Urine Nitrite Negative (NEG) Urine Bilirubin Negative (NEG) Urine Urobilinogen Dipstick 0.2 mg/dL (0.2 mg/dL) Urine Leukocyte Esterase Trace (NEG) Urine RBC 1-2 /HPF (0-2) Urine WBC 5-10 /HPF (0-4) Urine Squamous Epithelial Cells Mod /LPF Urine Bacteria Moderate /HPF (0-FEW) Urine Mucus Mod /LPF Glucose (Fingerstick) 96 mg/dL (70-99) White Blood Count 8.2 x10^3/uL (4.0-11.0) Red Blood Count 4.60 x10^6/uL (4.30-5.70) Hemoglobin 14.9 g/dL (13.0-17.5) Hematocrit 42.7 % (39.0-53.0) Mean Corpuscular Volume 93 fL (79-100) Mean Corpuscular Hemoglobin 32 pg (25-35) Mean Corpuscular Hemoglobin Concent 35 g/dL (31-37) Red Cell Distribution Width 13.3 % (11.5-14.5) Platelet Count 119 x10^3/uL (140-400) Neutrophils (%) (Auto) 57 % (31-73) Lymphocytes (%) (Auto) 33 % (24-48) Monocytes (%) (Auto) 9 % (0-9) Eosinophils (%) (Auto) 2 % (0-3) Basophils (%) (Auto) 1 % (0-3) Neutrophils # (Auto) 4.7 x10^3/uL (1.8-7.7) Lymphocytes # (Auto) 2.7 x10^3/uL (1.0-4.8) Monocytes # (Auto) 0.7 x10^3/uL (0.0-1.1) Eosinophils # (Auto) 0.1 x10^3/uL (0.0-0.7) Basophils # (Auto) 0.0 x10^3/uL (0.0-0.2) Sodium Level 142 mmol/L (136-145) 143 mmol/L (136-145) Potassium Level 4.4 mmol/L (3.5-5.1) 3.9 mmol/L (3.5-5.1) Chloride Level 104 mmol/L (98-107) 105 mmol/L (98-107) Carbon Dioxide Level 25 mmol/L (21-32) 31 mmol/L (21-32) Anion Gap 13 (6-14) 7 (6-14) Blood Urea Nitrogen 22 mg/dL (8-26) 19 mg/dL (8-26) Creatinine 1.1 mg/dL (0.7-1.3) 1.0 mg/dL (0.7-1.3) Estimated GFR (Cockcroft-Gault) 78.1 87.2 BUN/Creatinine Ratio 20 (6-20) Glucose Level 108 mg/dL (70-99) 99 mg/dL (70-99) Calcium Level 9.7 mg/dL (8.5-10.1) 9.4 mg/dL (8.5-10.1) Total Bilirubin 1.5 mg/dL (0.2-1.0) Aspartate Amino Transf (AST/SGOT) 24 U/L (15-37) Alanine Aminotransferase (ALT/SGPT) 29 U/L (16-63) Alkaline Phosphatase 70 U/L (46-116) Troponin I Quantitative < 0.017 ng/mL (0.000-0.055) Total Protein 7.7 g/dL (6.4-8.2) Albumin 4.6 g/dL (3.4-5.0) Albumin/Globulin Ratio 1.5 (1.0-1.7) Magnesium Level 2.4 mg/dL (1.8-2.4) Laboratory Tests Test 12/07/20 06:40 Sodium Level 143 mmol/L (136-145) Potassium Level 3.9 mmol/L (3.5-5.1) Chloride Level 105 mmol/L (98-107) Carbon Dioxide Level 31 mmol/L (21-32) Anion Gap 7 (6-14) Blood Urea Nitrogen 19 mg/dL (8-26) Creatinine 1.0 mg/dL (0.7-1.3) Estimated GFR (Cockcroft-Gault) 87.2 Glucose Level 99 mg/dL (70-99) Calcium Level 9.4 mg/dL (8.5-10.1) Magnesium Level 2.4 mg/dL (1.8-2.4) Assessment/Plan Assessment/Plan 1. Altered mental status with unresponsiveness and possible syncope in a patient with severe dementia, uncertain etiology. CT head without any acute process. Neurology team following. Plan ICD interrogation to rule out any significant arrhythmias. 2. CAD s/p PCI/stent to RCA in 2003, clinically stable and chest pain free. Continue current secondary prevention measures 3. Chronic systolic HF, LVEF 35%: clinically well compensated. Continue current medical regimen 4. Ischemic CMP s/p AICD implantation with more recent generator change. Device interrogation as stated abocve 5. HTN: controlled 6. HLP: statins 7. Severe dementia: Per IM Thank you for your consultation IVY MAHAJAN MD Dec 07, 2020 10:36
[2020-12-07 10:58] VITALS: BP 118/63
[2020-12-07 15:00] VITALS: BP 112/57
--- NOTE | 2020-12-07 15:01 | PDOC ---
PROGRESS NOTES DOS: DATE: 12/07/20 TIME: 15:01 Assessment Problems Medical Problems: (1) Altered mental status Status: Acute Plan This patient is 79-year-old man with past medical history of multiple medical problems with history of dementia, episodes of agitation. Patient was not feeling well for the last [id number] days prior to presentation. Patient was having more confusion. Patient had a syncope episode. Patient had improvement in symptoms. Patient currently denies any complaint of headache nausea or vomiting chest pain shortness of breath. Patient denied any focal extremity weakness. Patient had a CT scan done brain did not show any evidence of acute intracranial etiology changes noted for chronic small vessel ischemic disease, atrophy noted With episode of syncope. Check for orthostatic hypotension with encephalopathy with underlying dementia check for infectious, metabolic etiology. Patient had a CT scan done brain did not show any evidence of acute intracranial etiology c hanges noted for chronic small vessel ischemic disease, atrophy noted Neuro exam stable MRI of brain cannot be done due to current medical condition. On aspirin for stroke prevention. Check carotid Doppler. Physical therapy. Continue medical management. Plan discussed at length Subjective Patient is resting in bed he is feeling better. Family at bedside. She reports he appears to be at baseline Objective Vital Signs Date Time Temp Pulse Resp B/P (MAP) Pulse Ox O2 Delivery O2 Flow Rate FiO2 12/07/20 10:58 98.0 64 18 118/63 (81) 96 Room Air 98.0 Intake and Output 12/07/20 07:00 Intake Total 650 ml Output Total 250 ml Balance 400 ml Intake Oral 650 ml Output Urine Total 250 ml # Voids 3 PHYSICAL EXAM General no acute distress. HEENT: Normocephalic and atraumatic. NECK: Supple without bruit Respiratory: Clear to auscultation bilaterally Heart: Regular rate and rhythm, S1S2 normal NEUROLOGIC: Mental status Alert oriented. Cranial nerve equally reactive pupils, and intact extraocular movements. No facial asymmetry. Palate elevates and tongue protrudes in midline. Reflexes are 1-2 with flexor plantar responses. Coordination no dysmetria Strength able to move all exts equally. R BKA Sensory exam is intact for light touch and pinprick. Gait in bed. A 10-point review of systems was obtained. Other than the history of present illness the remainder of the review of systems is negative. Review of Relevant I have reviewed the following items yg (where applicable) has been applied. Labs Laboratory Tests Test 12/06/20 03:50 12/06/20 03:54 12/06/20 04:00 12/07/20 06:40 Urine Collection Type U cath Urine Color Yellow Urine Clarity Clear Urine pH 6.0 (<5.0-8.0) Urine Specific [place] >=1.030 (1.000-1.030) Urine Protein Negative mg/dL (NEG-TRACE) Urine Glucose (UA) Negative mg/dL (NEG) Urine Ketones (Stick) Negative mg/dL (NEG) Urine Blood Negative (NEG) Urine Nitrite Negative (NEG) Urine Bilirubin Negative (NEG) Urine Urobilinogen Dipstick 0.2 mg/dL (0.2 mg/dL) Urine Leukocyte Esterase Trace (NEG) Urine RBC 1-2 /HPF (0-2) Urine WBC 5-10 /HPF (0-4) Urine Squamous Epithelial Cells Mod /LPF Urine Bacteria Moderate /HPF (0-FEW) Urine Mucus Mod /LPF Glucose (Fingerstick) 96 mg/dL (70-99) White Blood Count 8.2 x10^3/uL (4.0-11.0) Red Blood Count 4.60 x10^6/uL (4.30-5.70) Hemoglobin 14.9 g/dL (13.0-17.5) Hematocrit 42.7 % (39.0-53.0) Mean Corpuscular Volume 93 fL (79-100) Mean Corpuscular Hemoglobin 32 pg (25-35) Mean Corpuscular Hemoglobin Concent 35 g/dL (31-37) Red Cell Distribution Width 13.3 % (11.5-14.5) Platelet Count 119 x10^3/uL (140-400) Neutrophils (%) (Auto) 57 % (31-73) Lymphocytes (%) (Auto) 33 % (24-48) Monocytes (%) (Auto) 9 % (0-9) Eosinophils (%) (Auto) 2 % (0-3) Basophils (%) (Auto) 1 % (0-3) Neutrophils # (Auto) 4.7 x10^3/uL (1.8-7.7) Lymphocytes # (Auto) 2.7 x10^3/uL (1.0-4.8) Monocytes # (Auto) 0.7 x10^3/uL (0.0-1.1) Eosinophils # (Auto) 0.1 x10^3/uL (0.0-0.7) Basophils # (Auto) 0.0 x10^3/uL (0.0-0.2) Sodium Level 142 mmol/L (136-145) 143 mmol/L (136-145) Potassium Level 4.4 mmol/L (3.5-5.1) 3.9 mmol/L (3.5-5.1) Chloride Level 104 mmol/L (98-107) 105 mmol/L (98-107) Carbon Dioxide Level 25 mmol/L (21-32) 31 mmol/L (21-32) Anion Gap 13 (6-14) 7 (6-14) Blood Urea Nitrogen 22 mg/dL (8-26) 19 mg/dL (8-26) Creatinine 1.1 mg/dL (0.7-1.3) 1.0 mg/dL (0.7-1.3) Estimated GFR (Cockcroft-Gault) 78.1 87.2 BUN/Creatinine Ratio 20 (6-20) Glucose Level 108 mg/dL (70-99) 99 mg/dL (70-99) Calcium Level 9.7 mg/dL (8.5-10.1) 9.4 mg/dL (8.5-10.1) Total Bilirubin 1.5 mg/dL (0.2-1.0) Aspartate Amino Transf (AST/SGOT) 24 U/L (15-37) Alanine Aminotransferase (ALT/SGPT) 29 U/L (16-63) Alkaline Phosphatase 70 U/L (46-116) Troponin I Quantitative < 0.017 ng/mL (0.000-0.055) Total Protein 7.7 g/dL (6.4-8.2) Albumin 4.6 g/dL (3.4-5.0) Albumin/Globulin Ratio 1.5 (1.0-1.7) Magnesium Level 2.4 mg/dL (1.8-2.4) Laboratory Tests Test 12/07/20 06:40 Sodium Level 143 mmol/L (136-145) Potassium Level 3.9 mmol/L (3.5-5.1) Chloride Level 105 mmol/L (98-107) Carbon Dioxide Level 31 mmol/L (21-32) Anion Gap 7 (6-14) Blood Urea Nitrogen 19 mg/dL (8-26) Creatinine 1.0 mg/dL (0.7-1.3) Estimated GFR (Cockcroft-Gault) 87.2 Glucose Level 99 mg/dL (70-99) Calcium Level 9.4 mg/dL (8.5-10.1) Magnesium Level 2.4 mg/dL (1.8-2.4) Microbiology 12/06/20 Urine Culture - Final, Complete Medications Current Medications Aspirin (Aspirin Chewable) 81 mg DAILY PO Last administered on 12/07/20 09:28; Start 12/06/20 at 11:00 Cetirizine HCl (ZyrTEC) 10 mg DAILY PO Last administered on 12/07/20at 09:28; Start 12/06/20 at 11:00 Donepezil HCl (Aricept) 10 mg HS PO ; Start 12/06/20 at 21:00; Stop 12/06/20 at 12:10; Status DC Latanoprost (Xalatan) 1 drop QHS OU ; Start 12/06/20 at 21:00 Lisinopril (Prinivil) 10 mg BID PO Last administered on 12/07/20 09:28; Start 12/06/20 at 11:00 Simvastatin (Zocor) 20 mg HS PO ; Start 12/06/20 at 21:00 Tamsulosin HCl (Flomax) 0.4 mg DAILYWSUP PO Last administered on 12/06/20at 17:17; Start 12/06/20 at 17:00 Carvedilol (Coreg) 25 mg BIDWMEALS PO Last administered on 12/07/20at 09:28; Start 12/06/20 at 12:00 Cyanocobalamin (Vitamin B-12) 1,000 mcg DAILY PO Last administered on 12/07/20 09:28; Start 12/06/20 at 11:00 Non-Formulary Medication (Mexiletine Hcl ) 150 mg Q8HRS PO Last administered on 12/07/20at 14:54; Start 12/06/20 at 14:00 Multivitamins (Thera M Plus) 1 tab DAILY PO Last administered on 12/07/20at 09:28; Start 12/06/20 at 11:00 Vitamin D (Vitamin D3) 2,000 unit DAILY PO ; Start 12/07/20 at 09:00; Stop 12/06/20 at 10:07; Status DC Vitamin D (Vitamin D3) 2,000 unit DAILY PO Last administered on 12/07/20at 09:27; Start 12/06/20 at 10:15 Donepezil HCl (Aricept) 20 mg HS PO ; Start 12/06/20 at 21:00 Memantine (Namenda) 5 mg BID PO Last administered on 12/07/20at 09:28; Start 12/06/20 at 13:00 Alprazolam (Xanax) 0.25 mg PRN Q8HRS PRN PO ANXIETY / AGITATION Last administered on 12/07/20at 03:09; Start 12/06/20 at 16:30 Mirtazapine (Remeron) 7.5 mg QHS PO ; Start 12/07/20 at 21:00 Active Scripts Active Memantine HCl 5 Mg Tablet 5 Mg PO BID 30 Days Mirtazapine 7.5 Mg Tablet 7.5 Mg PO QHS 30 Days Aricept (Donepezil Hcl) 10 Mg Tablet 20 Mg PO HS 30 Days Reported Vitamin D3 (Vitamin D) 25 Mcg Tablet 2,000 Intlu PO DAILY 1,000 UNITS = 25 MCG Cetirizine Hcl 10 Mg Tablet 10 Mg PO DAILY Lisinopril 10 Mg Tablet 10 Mg PO BID Flomax (Tamsulosin Hcl) 0.4 Mg Cap.er.24h 0.4 Mg PO DAILYWSUP Mexiletine Hcl 150 Mg Capsule 150 Mg PO TID Xalatan (Latanoprost) 2.5 Ml Drops 1 Drop OU QHS Carvedilol 25 Mg Tablet 25 Mg PO BIDWMEALS Simvastatin 20 Mg Tablet 20 Mg PO HS Vitamin B-12 (Cyanocobalamin (Vitamin B-12)) 1,000 Mcg Capsule 1 Cap PO DAILY 30 Days Centrum Silver Men Tablet (Multivit-Min/FA/Lycopen/Lutein) 1 Each Tablet 1 Each PO DAILY Aspirin 81 Mg Tab.chew 81 Mg PO DAILY Vitals/I & O Vital Sign - Last 24 Hours 12/06/20 12/06/20 12/06/20 12/07/20 19:15 20:00 22:45 03:10 Temp 97.9 97.6 97.6 97.9 97.6 97.6 Pulse 68 69 68 Resp 18 18 18 B/P (MAP) 91/42 (58) 129/72 (91) 134/70 (91) Pulse Ox 98 97 98 O2 Delivery Room Air Room Air Room Air Room Air 12/07/20 12/07/20 12/07/20 12/07/20 07:00 08:00 09:28 09:28 Temp 98.5 98.5 Pulse 74 74 74 Resp 20 B/P (MAP) 141/77 (98) 141/77 141/77 Pulse Ox 96 O2 Delivery Room Air Room Air 12/07/20 10:58 Temp 98.0 98.0 Pulse 64 Resp 18 B/P (MAP) 118/63 (81) Pulse Ox 96 O2 Delivery Room Air Intake and Output 12/06/20 12/06/20 12/07/20 15:00 23:00 07:00 Intake Total 360 ml 240 ml 50 ml Output Total 100 ml 150 ml Balance 260 ml 240 ml -100 ml Justicifation of Admission Dx: Justifications for Admission: Justification of Admission Dx: Yes JANIS MILLER MD Dec 07, 2020 15:01
--- NOTE | 2020-12-07 15:23 | RAD ---
EXAM: Bilateral carotid duplex with waveform analysis. CLINICAL HISTORY: Reason: Altered Mental Status / Spl. Instructions: / History: . . TECHNIQUE: Longitudinal and transverse sonographic images of the bilateral carotid arteries was perfo rmed utilizing grayscale, color and spectral Doppler techniques. COMPARISON: None FINDINGS: Right Carotid: Mild intimal thickening/atheromatous plaque. Left Carotid: Mild intimal thickening/atheromatous plaque. Vertebrals: Antegrade flow bilaterally. Right (CM/S) Left (CM/S) PSV CCA 93.1 113 PSV ICA 68.4 65.4 EDV ICA 18.5 23.7 PSV ECA 67.9 57.5 ICA/CCA 0.79 0.57 IMPRESSION: Less than 50 percent stenosis of the ICA bilaterally. Consensus Panel Prescott-scale and Doppler US Criteria for Diagnosis of ICA Stenosis Degree of Stenosis (%) ICA PSV (Cm/sec) Plaque Estimate (%)* Normal <125 None <50 <125 <50 50-69 125-230 >50 >70 but < near occlusion >230 >50 Near occlusion High, low, or undetectable Visible Total occlusion Undetectable Visible, no detectable lumen *Plaque estimate (diameter reduction) with prescott-scale and color Doppler US Degree of Stenosis (%) ICA/CCA PSV Ratio ICA EDV (cm/sec) Normal <2.0 <40 <50 <2.0 <40 50-69 2.0-4.0 40-100 >70 but < near occlusion >4.0 >100 Near occlusion Variable Variable Total occlusion Not applicable Not applicable Electronically signed by: Vishal Medina MD (12/07/2020 3:21 PM) JORDAN
[2020-12-07 17:41] VITALS: BP 112/57
[2020-12-07] MEDS: TAMSULOSIN 0.4 MG CAP.ER.24H. PO SCH (17:41)
--- NOTE | 2020-12-07 18:46 | NUR ---
Discharge Note: ANTONIA MATOS F [facility] Discharge instructions and discharge home medications reviewed with Spouse/son and a copy given. All questions have been answered and understanding verbalized. The following instructions and handouts were given: discharge instructions, medication info/list, follow ups, dementia education, AMS education, syncope education. Discontinued lines and drains: Peripheral IV intact. Patient discharged to Home w/services with Family Member via [employer] with help of family at [phone]. Patient being difficult at time of discharge & would not ride in wheelchair to chair. Addendum: 12/07/20 at 1917 by CAROLE GOFF RN Patient will receive home health from [facility].
[2020-12-07] MEDS ORDERED: MIRTAZAPINE 7.5 MG TABLET. PO SCH (21:00)
== END 2020-12-07 18:46 | disposition home health service (06) | DRG 73 ==
LOC: ER 03:25 → 2 SOUTH 05:21
PROVIDERS: ADMIT Internal Medicine; ATTEND Internal Medicine
PROC: 4B02XSZ Measurement of Cardiac Pacemaker, External Approach (ICD-10-PCS; principal; 2020-12-07)
DX: G90.8 Other disorders of autonomic nervous system (principal); G93.41 Metabolic encephalopathy; F03.91 Unspecified dementia, unspecified severity, with behavioral disturbance; I50.42 Chronic combined systolic (congestive) and diastolic (congestive) heart failure; I65.22 Occlusion and stenosis of left carotid artery; D69.6 Thrombocytopenia, unspecified; E53.8 Deficiency of other specified B group vitamins; E78.5 Hyperlipidemia, unspecified; H40.9 Unspecified glaucoma; I11.0 Hypertensive heart disease with heart failure; I25.10 Atherosclerotic heart disease of native coronary artery without angina pectoris; I25.2 Old myocardial infarction; I25.5 Ischemic cardiomyopathy; I65.29 Occlusion and stenosis of unspecified carotid artery; M16.11 Unilateral primary osteoarthritis, right hip; M19.011 Primary osteoarthritis, right shoulder; M19.041 Primary osteoarthritis, right hand; M19.042 Primary osteoarthritis, left hand; M47.816 Spondylosis without myelopathy or radiculopathy, lumbar region; Z82.49 Family history of ischemic heart disease and other diseases of the circulatory system; Z82.5 Family history of asthma and other chronic lower respiratory diseases; Z83.3 Family history of diabetes mellitus; Z95.5 Presence of coronary angioplasty implant and graft; Z95.810 Presence of automatic (implantable) cardiac defibrillator
CPT/HCPCS: 36415; 70450; 80048; 80053; 81001; 82962; 83735; 84484; 85025; 87086; 93005; 93880; P9612; 99285-25; G0378